=== PATIENT | male | born 2000 | race Caucasian/White ===

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

== ENCOUNTER → 2020-05-26 14:48 | Outpatient (CLI) | payer MEDICAID, SELFPAY ==
[2020-06-05 18:50] LABS: Miscellaneous Test SEE LABCORP REPORT
== END ==
PROVIDERS: Visit Provider Nurse Practitioner Family
DX: F19.10 Other psychoactive substance abuse, uncomplicated (principal)
CPT/HCPCS: 36415